=== PATIENT | male | born 1980 | race Caucasian/White ===

== ENCOUNTER 2021-06-01 16:36 | Emergency (ER) | payer OTHER ==
[~2021-06-01] VITALS: Ht 167.6 cm; Wt 77.1 kg
== END 2021-06-01 18:04 | disposition home or self-care (01) ==
LOC: ER 16:36
DX: S01.111A Laceration without foreign body of right eyelid and periocular area, initial encounter (principal); Y08.89XA Assault by other specified means, initial encounter; Y93.89 Activity, other specified; Y92.89 Other specified places as the place of occurrence of the external cause

== ENCOUNTER 2022-01-16 16:21 | Emergency (ER) | payer OTHER ==
[~2022-01-16] VITALS: Ht 170.2 cm; Wt 71.7 kg
== END 2022-01-16 22:17 | disposition left against medical advice (07) ==
LOC: ER 16:21
DX: J02.8 Acute pharyngitis due to other specified organisms (principal)

== ENCOUNTER 2022-02-17 13:25 | Inpatient (IN) | payer OTHER ==
[~2022-02-17] VITALS: Ht 170.2 cm; Wt 74.8 kg
== END 2022-02-20 18:17 | disposition home or self-care (01) | DRG 392 ==
LOC: ER 13:25 → SURH 21:29 → SEC-K 21:29 → SURH 02-18 00:39
PROVIDERS: ADMIT Internal Medicine; ATTEND Internal Medicine
PROC: BW21ZZZ Computerized Tomography (CT Scan) of Abdomen and Pelvis (ICD-10-PCS; principal; 2022-02-17)
DX: K57.32 Diverticulitis of large intestine without perforation or abscess without bleeding (principal); N39.0 Urinary tract infection, site not specified; Z20.822 Contact with and (suspected) exposure to COVID-19; K52.89 Other specified noninfective gastroenteritis and colitis; D72.828 Other elevated white blood cell count

== ENCOUNTER 2022-07-12 16:20 | Inpatient (IN) | payer OTHER ==
[~2022-07-12] VITALS: Ht 203.2 cm; Wt 74.8 kg
--- NOTE | 2022-07-12 16:39 | NUR ---
PTE ALERTA Y ORIENTADO X3. PTE REFIERE DOLOR EN EL COTSADO GHULAM DESDE EL LUNES. SE MIDEN S/V Y SE UBICA.
--- NOTE | 2022-07-12 17:04 | NUR ---
SE ORIENTA SOBRE TRATAMIENTO EL MISMO REFIERE ENTENDER. SE LE [facility]HEL[facility] DE [facility] CON MEDIDAS ASEPTICA SE LE ENTREGA ENVACE PARA ORINA PENDIENTE A ENTREGAR. SE LE ADM MEDICAMENTOS POR ORDEN MEDICA.
== END 2022-07-14 15:18 | disposition home or self-care (01) | DRG 392 ==
LOC: ER 16:20 → SEC-K 18:56 → SURH 18:56 → MEDJ 20:59 → SURH 21:24
PROVIDERS: ADMIT Specialist; ATTEND Specialist
PROC: BW21ZZZ Computerized Tomography (CT Scan) of Abdomen and Pelvis (ICD-10-PCS; principal; 2022-07-12)
DX: K57.32 Diverticulitis of large intestine without perforation or abscess without bleeding (principal); E86.0 Dehydration; Z20.822 Contact with and (suspected) exposure to COVID-19